=== PATIENT | male | born 1960 | race African-American/Black ===

== ENCOUNTER 2017-07-24 13:41 | Emergency (ER) | payer MEDICARE, OTHER ==
[2017-07-24] MEDS ORDERED: FLUORESCEIN STRIP (17:04)
[2017-07-24] MEDS: FLUORESCEIN STRIP RIGHT EYE (17:18)
== END 2017-07-24 17:44 | disposition home or self-care (01) ==
LOC: FTE 13:41
DX: H57.11 Ocular pain, right eye (principal); E11.9 Type 2 diabetes mellitus without complications; F17.210 Nicotine dependence, cigarettes, uncomplicated
CPT/HCPCS: 99283